=== PATIENT | female | born 1955 | race Caucasian/White ===

== ENCOUNTER → 2016-12-19 | Outpatient (CLI) | payer OTHER ==
--- NOTE | 2016-12-19 14:46 | REPMRS ---
Patient History The patient states she had a clinical breast exam in 2016. Patient is postmenopausal. Family history of unknown cancer in mother. Took hormonal contraceptives for 5 years. Took unspecified hormones for 5 years. Digital Mammo Screening Bilat: December 19, 2016 - Exam #: [id number] Bilateral CC and MLO view(s) were taken. Technologist: Kayleigh Espinal, Technologist Prior study comparison: November 30, 2015, bilateral digital mammo screening bilat performed at [facility]. November 03, 2014, bilateral digital mammo screening bilat performed at [facility]. October 29, 2013, bilateral bilat screen digital mammo, performed at [facility] ([facility]). FINDINGS: There are scattered fibroglandular densities. There has been no change in the appearance of the mammogram from the prior studies. There is a mild amount of residual fibroglandular tissue which is fairly symmetric. There is no interval development of dominant mass, architectural distortion, or clustered microcalcification suggestive of malignancy. Scattered lymph nodes are seen in the left axilla. No significant changes when compared with prior studies. ASSESSMENT: BI-RADS/ACR category 2 mammogram. Benign finding(s). Recommendation Routine screening mammogram in 1 year (for women over age 40). This mammogram was interpreted with the aid of an FDA-approved computer-aided dectection system. A. Negative x-ray reports should not delay biopsy if a dominant or clinically suspicious mass is present. B. Four to eight percent of cancers are not identified by mammography. C. Adenosis and dense breast may obscure an underlying neoplasm. Electronically Signed By: Bret Astudillo MD 12/19/16 [id number]
== END ==
LOC: M RAD 13:47
PROVIDERS: ATTEND Obstetrics & Gynecology
DX: Z12.31 Encounter for screening mammogram for malignant neoplasm of breast (principal)

== ENCOUNTER → 2017-04-10 | Outpatient (REF) | payer OTHER | LOC: M LAB REF 17:05 | PROVIDERS: ATTEND Internal Medicine | DX: Z01.89 Encounter for other specified special examinations (principal) ==

== ENCOUNTER → 2017-05-08 | Outpatient (CLI) | payer OTHER ==
--- NOTE | 2017-05-09 09:01 | DEXA ---
AP SPINE L1 - L4 1.154 -0.3 1.6 LT FEMUR TOTAL 1.021 0.1 1.2 RT FEMUR TOTAL 0.970 -0.3 0.8 TOTAL BODY TOTAL OTHER DUAL FEMUR FRAX* ASSESSMENT Risk factors: Not performed. 10 year probability of fracture Major osteoporotic fracture % Hip fracture % COMMENTS: Normal bone densitometry of the spine. There is low bone density of the hips. The increased density of the spine does represent a significant change. The decreased density of the left hip does not represent a significant change. The decreased density of the right hip does represent a significant change. The density of the spine has increased 11.5% since the initial exam on 07/2006. The spine density has increased 6.0% since the most recent exam on 04/2015. The density of the left hip has increased 1.2% since the initial exam on 2005. The density of the left hip has decreased 1.6% since the most recent exam on 2014. The density of the right hip has increased 1.4% since the initial exam on 2005. The density of the right hip has decreased 3.1% since the most recent exam on 2014. FOLLOW-UP: Recommendation for the next bone density exam: 2 years. PRINCED
== END ==
LOC: M WHC 08:46
PROVIDERS: ATTEND Internal Medicine
DX: M81.0 Age-related osteoporosis without current pathological fracture (principal)

== ENCOUNTER → 2019-01-08 | Outpatient (CLI) | payer BC ==
--- NOTE | 2019-01-08 10:59 | REPMRS ---
Patient History The patient states she had a clinical breast exam in 2018. Family history of unknown cancer in mother. Took hormonal contraceptives for 5 years. Took unspecified hormones for 5 years. Digital Mammo Screening Bilat: January 08, 2019 - Exam #: [id number] Bilateral CC and MLO view(s) were taken. Technologist: Kayleigh Espinal, Technologist Prior study comparison: January 04, 2018, bilateral digital mammo screening bilat performed at [facility]. December 19, 2016, bilateral digital mammo screening bilat performed at [facility]. November 30, 2015, bilateral digital mammo screening bilat performed at [facility]. FINDINGS: There are scattered fibroglandular densities. There has been no change in the appearance of the mammogram from the prior studies. There is a mild amount of scattered fibroglandular density which is fairly symmetric. There is no interval development of dominant mass, architectural distortion, or clustered microcalcification suggestive of malignancy. 3-D tomosynthesis shows no additional findings. Assessment: BI-RADS/ACR category 1 mammogram. Negative Mammogram. Recommendation Routine screening mammogram of both breasts in 1 year (for women over age 40). This patient's Lifetime Breast Cancer RIsk is estimated at 2.8 %. This mammogram was interpreted with the aid of an FDA-approved computer-aided dectection system. Electronically Signed By: Nawaf Bashir MD 01/08/19 [id number]
== END ==
LOC: M RAD 08:59
PROVIDERS: ATTEND Obstetrics & Gynecology
DX: Z12.31 Encounter for screening mammogram for malignant neoplasm of breast (principal)

== ENCOUNTER → 2019-11-29 | Outpatient (REF) | payer MEDICARE ==
[2019-12-01 00:06] LABS: Lyme Disease IgG/IgM Antibodie <0.91 ISR (0.00-0.90); Lyme Disease IgM Ab Quantitati <0.80 index (0.00-0.79); SSA SJOGRENS A <0.2 AI (0.0-0.9); SSB SJOGRENS B <0.2 AI (0.0-0.9)
== END ==
LOC: M LAB REF 12:26
PROVIDERS: ATTEND Internal Medicine
DX: H10.13 Acute atopic conjunctivitis, bilateral (principal)

== ENCOUNTER → 2020-03-31 | Outpatient (CLI) | payer MEDICARE ==
--- NOTE | 2020-03-31 15:38 | REPMRS ---
Patient History The patient states she had a clinical breast exam in 2019. Family history of unknown cancer in mother. Took hormonal contraceptives for 5 years. Took unspecified hormones for 5 years. 3D TOMOSYNTHESIS WAS PERFORMED. [facility]%. VOLROSALINDA DENSITY B. Digital Woman Screen Mammo: March 31, 2020 - Exam #: [id number] Bilateral CC and MLO view(s) were taken. Technologist: Kristi Cleary, Technologist Prior study comparison: January 08, 2019, bilateral digital mammo screening bilat, performed at [facility]. January 04, 2018, bilateral digital mammo screening bilat, performed at [facility]. FINDINGS: There are scattered fibroglandular densities. There has been no change in the appearance of the mammogram from the prior studies. There is a mild amount of residual fibroglandular tissue which is fairly symmetric. There is no interval development of dominant mass, architectural distortion, or clustered microcalcification suggestive of malignancy. Assessment: BI-RADS/ACR category 1 mammogram. Negative Mammogram. Recommendation Routine screening mammogram in 1 year (for women over age 40). This mammogram was interpreted with the aid of an FDA-approved computer-aided dectection system. Electronically Signed By: Lane Martinez MD 03/31/20 [id number]
--- NOTE | 2020-04-08 13:28 | DEXA ---
AP SPINE L1 - L4 1.193 0.0 1.6 LT FEMUR TOTAL 1.029 0.2 1.4 LT NECK 0.844 -1.4 0.1 RT FEMUR TOTAL 0.963 -0.4 0.9 RT NECK 0.862 -1.3 0.3 TOTAL BODY TOTAL OTHER COMMENTS: Normal bone densitometry of the spine. There is low bone density of the hips. The increased density of the spine does represent significant change. The increased density of the left hip does not represent a significant change. The decreased density of the right hip does not represent a significant change. The density of the spine has increased 15.3% since the initial exam on 07/31/2006. The increased 3.4% since the most recent exam on 05/08/2017. The density of the left hip has increased 2.0% since the initial exam on 07/31/2006. The density of the left hip has increased 0.8% since the most recent exam on 05/08/2017. The density of the right hip has increased 0.6% since the initial exam on 07/31/2006. The density of the right hip has decreased 0.7% since the most recent exam on 05/08/2017. FOLLOW-UP: Recommendation for the next bone density exam: 2 years. KARINE
== END ==
LOC: M WHC 13:21
PROVIDERS: ATTEND Internal Medicine
DX: Z12.31 Encounter for screening mammogram for malignant neoplasm of breast (principal); M85.88 Other specified disorders of bone density and structure, other site; Z80.9 Family history of malignant neoplasm, unspecified

== ENCOUNTER → 2020-04-10 | Outpatient (REF) | payer MEDICARE ==
[2020-04-10 12:54] LABS: C REACTIVE PROTEIN QUANTITATIV < 0.30 MG/DL (0.00-0.30)
== END ==
LOC: M LAB REF 12:19
PROVIDERS: ATTEND Internal Medicine
DX: M79.7 Fibromyalgia (principal)

== ENCOUNTER → 2021-04-08 | Outpatient (CLI) | payer MEDICARE ==
--- NOTE | 2021-04-08 12:40 | REPMRS ---
Patient History The patient states she had a clinical breast exam in Sep 2020. Patient is postmenopausal. Family history of unknown cancer in mother. Took hormonal contraceptives for 5 years. Took unspecified hormones for 5 years. Patient states no breast complaints today. Patient has signed MRS History Sheet. Digital Woman Screen Mammo: April 08, 2021 - Exam #: [id number] Bilateral CC and MLO view(s) were taken. Technologist: Maryana Darden, Technologist Prior study comparison: March 31, 2020, bilateral digital woman screen mammo performed at [facility]. January 08, 2019, bilateral digital mammo screening bilat, performed at [facility]. January 04, 2018, bilateral digital mammo screening bilat, performed at [facility]. FINDINGS: The breast tissue is almost entirely fat. The Volpara volumetric breast density category is: A. There has been no change in the appearance of the mammogram from the prior studies. There is no interval development of dominant mass, architectural distortion, or grouped microcalcification typical of malignancy. 3-D tomosynthesis shows no additional findings. Assessment: BI-RADS/ACR category 1 mammogram. Negative Mammogram. Recommendation Routine screening mammogram of both breasts in 1 year (for women over age 40). This patient's [facility] Lifetime Breast Cancer RIsk is estimated at 2.5 %. This mammogram was interpreted with the aid of an FDA-approved computer-aided dectection system. Electronically Signed By: Nawaf Bashir MD 04/08/21 [id number]
== END ==
LOC: M WHC 11:22
PROVIDERS: ATTEND Obstetrics & Gynecology
DX: Z12.31 Encounter for screening mammogram for malignant neoplasm of breast (principal); Z80.9 Family history of malignant neoplasm, unspecified

== ENCOUNTER → 2022-05-24 | Outpatient (CLI) | payer MEDICARE | LOC: M WHC 12:47 | PROVIDERS: ATTEND Internal Medicine | DX: Z12.31 Encounter for screening mammogram for malignant neoplasm of breast (principal) ==

== ENCOUNTER → 2022-08-11 | Outpatient (CLI) | payer MEDICARE | LOC: M WHC 12:50 | PROVIDERS: ATTEND Internal Medicine | DX: M85.852 Other specified disorders of bone density and structure, left thigh (principal) ==

== ENCOUNTER → 2022-11-01 | Outpatient (REF) | payer BC, MEDICARE | LOC: M SFHCWAGY 17:07 | PROVIDERS: ATTEND Nurse Practitioner Family | DX: Z12.4 Encounter for screening for malignant neoplasm of cervix (principal); R87.610 Atypical squamous cells of undetermined significance on cytologic smear of cervix (ASC-US) | CPT/HCPCS: 87624; G0101; G0123 ==

== ENCOUNTER → 2023-06-06 | Outpatient (CLI) | payer MEDICARE | LOC: M WHC 09:05 | PROVIDERS: ATTEND Nurse Practitioner Family | DX: Z12.31 Encounter for screening mammogram for malignant neoplasm of breast (principal) ==

== ENCOUNTER → 2024-06-12 | Outpatient (CLI) | payer MEDICARE | LOC: M WHC 12:47 | PROVIDERS: ATTEND Internal Medicine | DX: Z12.31 Encounter for screening mammogram for malignant neoplasm of breast (principal) ==

== ENCOUNTER → 2025-06-24 | Outpatient (CLI) | payer MEDICARE | LOC: M WHC 11:33 | PROVIDERS: ATTEND Internal Medicine | DX: Z12.31 Encounter for screening mammogram for malignant neoplasm of breast (principal) ==